=== PATIENT | female | born 1985 | race African-American/Black ===

== ENCOUNTER 2021-11-02 22:39 | Emergency (ER) | payer OTHER ==
[2021-11-02 22:48] VITALS: BMI 26.3
[2021-11-02 22:54] VITALS: BP 144/82; PULSE 87; RESP 16; TEMP 99.2
[2021-11-02] MEDS ORDERED: METHOCARBAMOL 500 MG TABLET PO ONE (23:20)
[2021-11-02] MEDS ORDERED: METHOCARBAMOL 500 MG TABLET ONE (23:23)
== END 2021-11-02 23:59 | disposition home or self-care (01) ==
LOC: FER 22:39
DX: M62.838 Other muscle spasm (principal)
CPT/HCPCS: 93005; 99284-25